=== PATIENT | male | born 1960 | race Caucasian/White ===

== ENCOUNTER 2019-05-09 12:44 | Emergency (ER) | payer OTHER, SELFPAY ==
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
[2019-05-09 12:49] VITALS: BP 166/99; PULSE 58; RESP 18; TEMP 37.2; O2SAT 95; BMI 31.6
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
[2019-05-09] MEDS: HYDROcodone Bitartrate/Apap 5/325 Tablet PO (13:50)
== END 2019-05-09 15:33 | disposition home or self-care (01) ==
PROVIDERS: Emergency Provider Emergency Medicine
DX: S92.252A Displaced fracture of navicular [scaphoid] of left foot, initial encounter for closed fracture (principal); S43.402A Unspecified sprain of left shoulder joint, initial encounter; S90.512A Abrasion, left ankle, initial encounter; S90.812A Abrasion, left foot, initial encounter; V29.49XA Motorcycle driver injured in collision with other motor vehicles in traffic accident, initial encounter; Y93.9 Activity, unspecified; Y92.9 Unspecified place or not applicable; Z98.1 Arthrodesis status
CPT/HCPCS: 71045; 72040; 73060; 73590; 73630; 99285